=== PATIENT | male | born 1960 | race Caucasian/White ===

== ENCOUNTER 2021-01-02 16:31 | Emergency (ER) | payer OTHER, SELFPAY ==
[2021-01-02 16:32] VITALS: BP 153/82; PULSE 87; RESP 17; TEMP 35.5; O2SAT 97; BMI 28.7
--- NOTE | 2021-01-02 17:33 | CT_ITS ---
STUDY: CT BRAIN WITHOUT CONTRAST REASON FOR EXAM: Male, 60 years old. Headache after trauma RADIATION DOSAGE (If Supplied By Facility): CTDIvol = ( 38.43 ) mGy, DLP = ( 1569.48 ) mGycm TECHNIQUE: Transaxial CT imaging of the brain was performed without administration of intravenous contrast material. Individualized dose optimization techniques were used for this CT. COMPARISON: No relevant priors. FINDINGS: Normal soft tissue structures. Normal calvarium. Normal size ventricles and extra-axial spaces for the patient''s age. Normal white matter tracts of the cerebral hemispheres. Normal basal ganglia and thalami. Normal brainstem. Normal cerebellum. There is no intracranial hemorrhage. There are no findings of an acute ischemic infarction. Normal visualized paranasal sinuses. CT/Brain/Head without Contrast IMPRESSION: Chronic involutional changes of the brain. No acute hemorrhage Electronically Signed: Jesus Sheikh MD at 18:38 EDT , Service support ,
--- NOTE | 2021-01-02 17:35 | ED.VIS.GEN ---
History of Present Illness Chief Complaint: Fall Informant: Patient Narrative: 60-year-old male presenting with left rib pain after slipping and falling on a wet floor. Patient states he did hit his head but did not lose consciousness. Is not on any blood thinners. He initially had some nausea but this resolved. He denies dizziness, nausea, vomiting, unstable gait, visual changes currently. He mostly complains of his left ribs. He does not feel short of breath but it does hurt to take a deep breath. Patient denies any neck pain. Patient has been otherwise healthy. Past Medical History - Allergies and Home Meds Allergies/Adverse Reactions: Allergies No Known Allergies Allergy (Verified 01/02/21 16:31) Primary Care Physician: Grey Myers MD [Primary Care Provider] - Prior records reviewed: Yes Past Medical History: - - Diabetes, hypertension Surgical History: noncontributory Lives: Spouse/ Significant Other Smoking Status: Former smoker Alcohol: None Drugs: None Review of Systems General: Reports: Chills Eyes: Denies: Visual changes - bilaterally, Diplopia ENT: Denies: Rhinorrhea, Sore throat Cardiovascular: Denies: Chest pain, Palpitations Respiratory: Reports: - - Left posterior rib pain. Denies: Dyspnea, Cough, Dyspnea on exertion Gastrointestinal: Reports: Nausea - Resolved. Denies: Abdominal pain, Vomiting, Diarrhea, Melena, Hematochezia Genitourinary: Denies: Dysuria, Hematuria, Frequency Musculoskeletal: Denies: Back pain, Extremity Pain Skin: Denies: Rash, Wounds Neurological: Reports: Headache - Resolved. Denies: Weakness, Parasthesia, Numbness Psych: Denies: Depression, Anxiety Physical Exam Vital Signs/Narrative: Vital Signs Temp Pulse Resp BP Pulse Ox 01/02/21 16:32 95.9 F L 87 17 153/82 H 97 Inital Vital Signs reviewed: Yes General: Well nourished, No Acute Distress Head: Normocephalic, Atraumatic Eyes: Perrl, EOMI ENT: Moist mucous membranes, No rhinorrhea Neck: - - Midline spinal tenderness, deformity, step-off. Cardiovascular: Regular rate, Regular rhythm Respiratory: No distress, CTA bilaterally, - - Equal symmetric breath sounds and chest wall rise. Palpation left posterior ribs. No crepitance palpated. No ecchymosis. Back: - - Distal left ribs as described above.. Negative for: Spinal tenderness Extremities: Nontender, No edema Skin: Normal color, No rash Neurological: Alert, Oriented x3, Cranial nerves II-XII grossly intact, Normal Strength, Normal Sensation Psychological: Normal affect, Normal Mood Diagnostic/Tx/Re-eval Clinical Impression(s) from Imaging Studies Brain CT 01/02/21 17:33 IMPRESSION: Chronic involutional changes of the brain. No acute hemorrhage Electronically Signed: Jesus Sheikh MD at 18:38 EDT , Service support , Ribs w/Chest X-Ray 01/02/21 17:50 IMPRESSION: RIBS: Normal x-ray examination of the ribs. CHEST: Normal x-ray examination of the chest. Electronically Signed: Jesus Sheikh MD at 18:38 EDT , Service support , - Medical Decision Making 60-year-old male presenting with left posterior rib pain and head injury. He states he slipped on wet floor. Patient denies LOC. He is not have any neurological signs or symptoms now. Patient given [place] on arrival for pain. Patient had a Lidoderm patches placed as well. Patient had left rib series as interpreted by myself as no acute cardiopulmonary process. There is no bony fractures. CT of the brain is negative for acute intracranial pathology. Patient counseled on managing his pain and return precautions. Stable discharge at this time. Impression: 1. Mechanical fall 2. Closed head injury, 3. Left rib contusion ED Disposition - Plan for ED Patient: Disposition: Home or Assisted Living Instructions: ED Contusion, Rib, ED Mechanical Fall, ED Head Injury (Adult) Referrals: Grey Myers MD [Primary Care Provider] -
[2021-01-02] MEDS: Lidocaine 5% Patch 1 PATCH TOPICAL (17:39)
[2021-01-02] MEDS: HYDROcodone Bitartrate/Apap 5/325 Tablet PO (17:40)
--- NOTE | 2021-01-02 17:50 | RAD_ITS ---
STUDY: X-RAY - UNILATERAL RIBS ( LEFT ) WITH CHEST REASON FOR EXAM: Male, 60 years old. Left posterior rib pain TECHNIQUE - RIBS: 7 view(s) of the ribs. TECHNIQUE - CHEST: Single PA view of the chest. COMPARISON: None. FINDINGS - RIBS: Normal visualized ribs without a demonstrated fracture. FINDINGS - CHEST: The lungs are clear and expanded. There is no demonstrated pleural abnormality. Normal size heart. Normal mediastinum and henri. Normal visualized pulmonary arteries. Normal visualized aortic arch and descending thoracic aorta. Normal visualized thoracic spine. Normal visualized ribs, clavicles, and shoulders. There is no demonstrated abnormality of the visualized soft tissue structures of the upper abdomen. RAD/Ribs Uni Min 3V w/PA Chest IMPRESSION: RIBS: Normal x-ray examination of the ribs. CHEST: Normal x-ray examination of the chest. Electronically Signed: Jesus Sheikh MD at 18:38 EDT , Service support ,
[2021-01-02 19:05] VITALS: BP 148/82; PULSE 86; RESP 15; O2SAT 95
== END 2021-01-02 19:07 | disposition home or self-care (01) ==
PROVIDERS: Emergency Provider Student in an Organized Health Care Education/Training Program; PCP Internal Medicine
DX: S09.90XA Unspecified injury of head, initial encounter (principal); S20.212A Contusion of left front wall of thorax, initial encounter; I10 Essential (primary) hypertension; E11.9 Type 2 diabetes mellitus without complications; W01.0XXA Fall on same level from slipping, tripping and stumbling without subsequent striking against object, initial encounter; Z79.4 Long term (current) use of insulin; Z79.82 Long term (current) use of aspirin; Z79.899 Other long term (current) drug therapy; Z87.891 Personal history of nicotine dependence
CPT/HCPCS: 70450; 71101; 99282

== ENCOUNTER → 2021-08-22 18:12 | Outpatient (CLI) | payer OTHER, SELFPAY ==
--- NOTE | 2021-08-22 18:16 | US_ITS ---
STUDY: SUPERFICIAL ULTRASOUND - RIGHT ANTERIOR NECK. REASON FOR EXAM: Male, 61 years old. RT ANTERIOR NECK MASS TECHNIQUE: A superficial ultrasound was performed with real-time and static denis-scale imaging. COMPARISON: None. FINDINGS: Sonographic imaging was obtained. Multiple small benign-appearing lymph nodes are seen. The largest measures 1.3 cm x 1.8 cm x 0.4 cm. US/Head/Neck Soft Tissue IMPRESSION: Small benign-appearing cervical lymph nodes. Electronically Signed: Darius Brunner MD at 15:13 EST , Service support ,
== END ==
PROVIDERS: PCP Internal Medicine; Visit Provider Dermatology
DX: D17.0 Benign lipomatous neoplasm of skin and subcutaneous tissue of head, face and neck (principal)
CPT/HCPCS: 76536